=== PATIENT | female | born 1985 | race American Indian/Alaskan Native ===

== ENCOUNTER 2020-10-31 14:28 | Emergency (ER) | payer MEDICARE ==
[2020-10-31 15:29] VITALS: BP 153/87
--- NOTE | 2020-10-31 16:26 | Emergency Department Report ---
ED ENT HPI - General Chief complaint: Earache Stated complaint: RT EAR INFECTION Time Seen by Provider: 10/31/20 16:18 Source: family Mode of arrival: Ambulatory Limitations: Other - History of Present Illness Initial comments: Patient is a 35-year-old female brought in by her mother with complaints of right ear drainage which the mother states that she noticed today. The patient has a history of developmental delay and is nonverbal, the mother is giving the history. The mother states that she has been taking in the ear and pulling at the ear. Mother states that she noticed yellow-colored drainage from the ear. Mother denies any fever, nausea, vomiting, diarrhea, cough, any other symptoms. She denies any sick contacts or recent travel. Mother denies anything getting into the ear that she is aware of. She states that she is able to take pills. She denies any medication allergies. She states that she had a partial hysterectomy. - Related Data Home Medications Medication Instructions Recorded Confirmed Last Taken Methylphenidate HCl [Ritalin] 10 mg BID 10/25/13 10/25/13 10/25/13 09:00 Previous Rx's Medication Instructions Recorded Last Taken Type Neomy/Polymyx B/Hc (Otic) Soln 4 drops OT TID #10 ml 10/25/13 Unknown Rx [Cortisporin (Otic) Soln] Antipyrine/Benzocaine/Glycerin 2 drops AU Q3H PRN #1 bottle 04/07/14 Unknown Rx [Auralgan Otic Soln] Neomy/Polymyx B/Hc (Otic) Soln 4 drops OT TID #1 bottle 04/07/14 Unknown Rx [Cortisporin (Otic) Soln] Amoxicillin [Amoxicillin TAB] 875 mg PO BID #20 tablet 10/31/20 Unknown Rx Ofloxacin 0.3% [Floxin 0.3% Otic] 10 drops AD DAILY 10 Days #1 bottle 10/31/20 Unknown Rx Allergies Allergy/AdvReac Type Severity Reaction Status Date / Time No Known Allergies Allergy Verified 10/31/20 15:25 ED Dental HPI - General Chief complaint: Earache Stated complaint: RT EAR INFECTION Time Seen by Provider: 10/31/20 16:18 Source: family Mode of arrival: Ambulatory Limitations: Other - Related Data Home Medications Medication Instructions Recorded Confirmed Last Taken Methylphenidate HCl [Ritalin] 10 mg BID 10/25/13 10/25/13 10/25/13 09:00 Previous Rx's Medication Instructions Recorded Last Taken Type Neomy/Polymyx B/Hc (Otic) Soln 4 drops OT TID #10 ml 10/25/13 Unknown Rx [Cortisporin (Otic) Soln] Antipyrine/Benzocaine/Glycerin 2 drops AU Q3H PRN #1 bottle 04/07/14 Unknown Rx [Auralgan Otic Soln] Neomy/Polymyx B/Hc (Otic) Soln 4 drops OT TID #1 bottle 04/07/14 Unknown Rx [Cortisporin (Otic) Soln] Amoxicillin [Amoxicillin TAB] 875 mg PO BID #20 tablet 10/31/20 Unknown Rx Ofloxacin 0.3% [Floxin 0.3% Otic] 10 drops AD DAILY 10 Days #1 bottle 10/31/20 Unknown Rx Allergies Allergy/AdvReac Type Severity Reaction Status Date / Time No Known Allergies Allergy Verified 10/31/20 15:25 ED Review of Systems ROS: Stated complaint: RT EAR INFECTION Other details as noted in HPI Comment: All other systems reviewed and negative ED Past Medical Hx - Past Medical History Additional medical history: ADHD, mental retardation - Surgical History Additional Surgical History: Back surgery - Social History Smoking Status: Never Smoker - Medications Home Medications: Home Medications Medication Instructions Recorded Confirmed Last Taken Type Methylphenidate HCl [Ritalin] 10 mg BID 10/25/13 10/25/13 10/25/13 09:00 History Neomy/Polymyx B/Hc (Otic) Soln 4 drops OT TID #10 ml 10/25/13 Unknown Rx [Cortisporin (Otic) Soln] Antipyrine/Benzocaine/Glycerin 2 drops AU Q3H PRN #1 bottle 04/07/14 Unknown Rx [Auralgan Otic Soln] Neomy/Polymyx B/Hc (Otic) Soln 4 drops OT TID #1 bottle 04/07/14 Unknown Rx [Cortisporin (Otic) Soln] Amoxicillin [Amoxicillin TAB] 875 mg PO BID #20 tablet 10/31/20 Unknown Rx Ofloxacin 0.3% [Floxin 0.3% Otic] 10 drops AD DAILY 10 Days #1 bottle 10/31/20 Unknown Rx ED Physical Exam - General Limitations: Other General appearance: alert, in no apparent distress - Head Head exam: Present: atraumatic, normocephalic - Eye Eye exam: Present: normal appearance - ENT ENT exam: Present: mucous membranes moist, other (left TM and canal are normal, right TM is erythematous with purulence behind the TM, ear canal is erythematous with scaling and purulent drainage in the canal, no ttp over the mastoid, no o bvious TM perforation) - Respiratory Respiratory exam: Absent: respiratory distress, accessory muscle use - Neurological Exam Neurological exam: Present: alert - Skin Skin exam: Present: warm, dry, intact ED Course Vital Signs 10/31/20 15:27 Temperature 98.2 F Pulse Rate 114 H Respiratory 20 Rate Blood Pressure 153/87 [Right] O2 Sat by Pulse 100 Oximetry ED Medical Decision Making - Medical Decision Making Patient is a 35-year-old female brought in by her mother with complaints of right ear drainage which the mother states that she noticed today. The patient has a history of developmental delay and is nonverbal, the mother is giving the history. The mother states that she has been taking in the ear and pulling at the ear. Mother states that she noticed yellow-colored drainage from the ear. Mother denies any fever, nausea, vomiting, diarrhea, cough, any other symptoms. She denies any sick contacts or recent travel. Mother denies anything getting into the ear that she is aware of. She states that she is able to take pills. She denies any medication allergies. She states that she had a partial hysterectomy. on exam: left TM and canal are normal, right TM is erythematous with purulence behind the TM, ear canal is erythematous with scaling and purulent drainage in the canal, no ttp over the mastoid, no obvious TM perforation. Examination appears consistent with otitis media and otitis externa. Patient given prescription for amoxicillin and antibiotic eardrops. Advised patient's mother Please use medication as prescribed. May give Tylenol or ibuprofen for any discomfort. Follow-up with the primary care doctor in the next 3 to 5 days to have ear recheck. Return to emergency room for any new or worsening symptoms. Critical care attestation.: If time is entered above; I have spent that time in minutes in the direct care of this critically ill patient, excluding procedure time. ED Disposition Clinical Impression: Otitis media Qualifiers: Otitis media type: suppurative Chronicity: acute Laterality: right Recurrence: non-recurrent Spontaneous tympanic membrane rupture: without spontaneous rupture Qualified Code(s): H66.001 - Acute suppurative otitis media without spontaneous rupture of ear drum, right ear Otitis externa Qualifiers: Otitis externa type: unspecified type Chronicity: acute Laterality: right Qualified Code(s): H60.501 - Unspecified acute noninfective otitis externa, right ear Disposition: TO HOME OR SELFCARE Is pt being admited?: No Does the pt Need Aspirin: No Condition: Stable Instructions: Otitis Externa, [id number], Otitis Media, Adult, [id number] Additional Instructions: Please use medication as prescribed. May give Tylenol or ibuprofen for any discomfort. Follow-up with the primary care doctor in the next 3 to 5 days to have ear recheck. Return to emergency room for any new or worsening symptoms. Prescriptions: Amoxicillin [Amoxicillin TAB] 875 mg PO BID #20 tablet Ofloxacin 0.3% [Floxin 0.3% Otic] 10 drops AD DAILY 10 Days #1 bottle Referrals: KEAGAN ARROYO MD [Staff Physician] - 3-5 Days [facility] [Provider Group] - 3-5 Days Time of Disposition: 16:25 Print Language: SLOVENIAN
== END 2020-10-31 16:32 | disposition home or self-care (01) ==
LOC: ED 14:28
DX: H66.91 Otitis media, unspecified, right ear (principal); H60.91 Unspecified otitis externa, right ear; Z90.710 Acquired absence of both cervix and uterus; Z98.890 Other specified postprocedural states; Z79.2 Long term (current) use of antibiotics; Z79.899 Other long term (current) drug therapy
CPT/HCPCS: 99282